=== PATIENT | female | born 1985 | race Caucasian/White ===

== ENCOUNTER 2017-02-16 12:09 | Emergency (ER) | payer OTHER ==
[~2017-02-16] VITALS: Ht 170.2 cm; Wt 98.0 kg
[~2017-02-16 12:09] MED LIST: ACET-704 PO; AMOX1TAB61 PO; METF500T4 PO; PRED50TA PO
[2017-02-16 13:20] VITALS: BP 168/81
[2017-02-16] MEDS ORDERED: PENICILLIN G BENZATHINE LA 1,200,000 UNIT/2 ML DISP.SYRIN. IM ONE (13:45)
--- NOTE | 2017-02-16 13:48 | PHYS DOC ---
Past Medical History Past Medical History: Gallstones, Other Additional Past Medical Histor: pre diabetes Past Surgical History: Additional Past Surgical Histo: x 2, endometriosis Alcohol Use: Occasionally Drug Use: None Adult General Chief Complaint Chief Complaint: SORE THROAT HPI HPI Patient is a 31 year old female who presents with sore throat that began yesterday and body aches that began a week ago. Patient's also complaining of subjective fevers. Review of Systems Review of Systems Constitutional: Subjective fevers and body aches Eyes: Denies change in visual acuity, redness, or eye pain [] HENT: sore throat [] Respiratory: Denies cough or shortness of breath [] Cardiovascular: No additional information not addressed in HPI [] GI: Denies abdominal pain, nausea, vomiting, bloody stools or diarrhea [] : Denies dysuria or hematuria [] Musculoskeletal: Denies back pain or joint pain [] Integument: Denies rash or skin lesions [] Neurologic: Denies headache, focal weakness or sensory changes [] Endocrine: Denies polyuria or polydipsia [] Current Medications Current Medications Current Medications Medications (Trade) Dose Ordered Sig/Essence Start Time Stop Time Status Last Admin Dose Admin Penicillin G Benzathine (Bicillin L-A) 1,200,000 unit 1X ONCE 02/16/17 13:45 02/16/17 13:46 DC Allergies Allergies Allergies Coded Allergies Type Severity Reaction Last Updated Verified No Known Drug Allergies 11/04/14 No Physical Exam Physical Exam Constitutional: Well developed, well nourished, no acute distress, non-toxic appearance. [] HENT: Normocephalic, atraumatic, bilateral external ears normal, oropharynx moist, no oral exudates, nose normal. [] +3 tonsils with mild erythema and bilateral exudate. Midline uvula + 2Anterior cervical adenopathy Eyes: PERRLA, EOMI, conjunctiva normal, no discharge. [] Neck: Normal range of motion, no tenderness, supple, no stridor. [] Cardiovascular:Heart rate regular rhythm, no murmur [] Lungs & Thorax: Bilateral breath sounds clear to auscultation [] Abdomen: Bowel sounds normal, soft, no tenderness, no masses, no pulsatile masses. [] Skin: Warm, dry, no erythema, no rash. [] Back: No tenderness, no CVA tenderness. [] Extremities: No tenderness, no cyanosis, no clubbing, ROM intact, no edema. [] Neurologic: Alert and oriented X 3, normal motor function, normal sensory function, no focal deficits noted. [] Psychologic: Affect normal, judgement normal, mood normal. [] Current Patient Data Vital Signs Vital Signs Date Time Temp Pulse Resp B/P Pulse Ox O2 Delivery O2 Flow Rate FiO2 02/16/17 13:20 98.2 82 16 96 Room Air 98.2 EKG EKG [] Radiology/Procedures Radiology/Procedures [] Course & Med Decision Making Course & Med Decision Making Pertinent Labs and Imaging studies reviewed. (See chart for details) Patient has tonsillitis. Given Bicillin shot in the ED. Saltwater gargles recommended. Tylenol/Motrin for pain or fever. Follow-up with PCP in one week. Dragon Disclaimer Dragon Disclaimer This electronic medical record was generated, in whole or in part, using a voice recognition dictation system. Departure Departure Impression: Primary Impression: Acute tonsillitis Disposition: HOME, SELF-CARE Condition: STABLE Referrals: NO PCP (PCP) Follow-up with your doctor in one week Patient Instructions: Tonsillitis, [id number] Additional Instructions: You were seen for tonsillitis and treated in the emergency room. Take Tylenol/ Motrin for pain or fever. Use saltwater gargles as directed. Come back to the ED if symptoms worsen. 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
== END 2017-02-16 14:23 | disposition home or self-care (01) ==
LOC: ER 12:09
DX: J03.90 Acute tonsillitis, unspecified (principal)
CPT/HCPCS: 96372; 99283; J0561

== ENCOUNTER 2017-04-02 14:33 | Emergency (ER) | payer OTHER ==
[~2017-04-02] VITALS: Ht 170.2 cm; Wt 99.8 kg
[2017-04-02] MEDS ORDERED: 0.9 % SODIUM CHLORIDE 10 ML DISP.SYRIN. IV PRN (15:15)
[2017-04-02] MEDS ORDERED: ONDANSETRON PF 4 MG/2 ML VIAL. IV ONE (15:15)
[2017-04-02] MEDS ORDERED: IV NORMAL SALINE 1000ML BAG 1,000 ML IV SCH (15:15)
[2017-04-02 15:37] LABS: BASO # 0.1 x10^3/uL (0.0-0.2); BASO % 1 % (0-3); EOS % 1 % (0-3); HEMATOCRIT 40.8 % (36.0-47.0); HEMOGLOBIN 13.7 g/dL (12.0-15.5); LYMPH # 3.1 x10^3/uL (1.0-4.8); LYMPH % 25 % (24-48); MEAN CORPUSCULAR HEMOGLOBIN 30 pg (25-35); MEAN CORPUSCULAR HGB CONC 34 g/dL (31-37); MEAN CORPUSCULAR VOLUME 88 fL (79-100); MONO % 7 % (0-9); NEUT % 66 % (31-73); PLATELET COUNT 320 x10^3/uL (140-400); RED BLOOD COUNT 4.64 x10^6/uL (3.50-5.40); RED CELL DISTRIBUTION WIDTH 14.2 % (11.5-14.5); WHITE BLOOD COUNT 12.5 x10^3/uL (4.0-11.0)
[2017-04-02] MEDS: MORPHINE SULFATE 4 MG/ML DISP.SYRIN. IV/SQ PRN ×2 (15:41→17:09)
--- NOTE | 2017-04-02 15:41 | PHYS DOC ---
Past Medical History Past Medical History: Gallstones, Other Additional Past Medical Histor: pre diabetes Past Surgical History: Additional Past Surgical Histo: x 2, endometriosis Alcohol Use: Occasionally Drug Use: None Adult General Chief Complaint Chief Complaint: ABDOMINAL PAIN HPI HPI Patient is a 31 year old female who presents with abdominal pain. She states yesterday morning she woke up with it she states she's having a right upper quadrant pain that's contraction-like discomfort and it radiates around to her back which is constant pain. She's also been complaining about some nausea and several episodes of loose stools. She denies any blood in her stools. She states nothing makes the pain better or worse. Is not associated with eating. She has GERD and has been taking her GERD medicine without any help. Review of Systems Review of Systems Constitutional: Denies fever or chills [] Eyes: Denies change in visual acuity, redness, or eye pain [] HENT: Denies nasal congestion or sore throat [] Respiratory: Denies cough or shortness of breath [] Cardiovascular: No additional information not addressed in HPI [] GI: Positive for abdominal pain, nausea, diarrhea , denies any vomiting, bloody stools : Denies dysuria or hematuria [] Musculoskeletal: Denies back pain or joint pain [] Integument: Denies rash or skin lesions [] Neurologic: Denies headache, focal weakness or sensory changes [] Endocrine: Denies polyuria or polydipsia [] Current Medications Current Medications Current Medications Medications (Trade) Dose Ordered Sig/Essence Start Time Stop Time Status Last Admin Dose Admin Info (Do NOT chart on this entry -- for MONITORING) 1 each PRN DAILY PRN 04/02/17 17:15 04/04/17 17:14 Iohexol (Omnipaque 300 Mg/ml) 75 ml 1X ONCE 04/02/17 17:15 04/02/17 17:16 DC 04/02/17 17:27 75 ML Morphine Sulfate 4 mg PRN Q15MIN PRN 04/02/17 15:15 04/03/17 15:14 04/02/17 17:09 4 MG Ondansetron HCl (Zofran) 4 mg 1X ONCE 04/02/17 15:15 04/02/17 15:17 DC 04/02/17 15:41 4 MG Sodium Chloride (Normal Saline Flush) 10 ml QSHIFT PRN 04/02/17 15:15 Allergies Allergies Allergies Coded Allergies Type Severity Reaction Last Updated Verified No Known Drug Allergies 11/04/14 No Physical Exam Physical Exam Constitutional: Well developed, well nourished, no acute distress, non-toxic appearance. [] HENT: Normocephalic, atraumatic, bilateral external ears normal, oropharynx moist, no oral exudates, nose normal. [] Eyes: PERRLA, EOMI, conjunctiva normal, no discharge. [] Neck: Normal range of motion, no tenderness, supple, no stridor. [] Cardiovascular:Heart rate regular rhythm, no murmur [] Lungs & Thorax: Bilateral breath sounds clear to auscultation [] Abdomen: Bowel sounds normal, soft, tender palpation in the right upper quadrant , no rebound or guarding, no masses, no pulsatile masses. [] Skin: Warm, dry, no erythema, no rash. [] Back: No tenderness, no CVA tenderness. [] Extremities: No tenderness, no cyanosis, no clubbing, ROM intact, no edema. [] Neurologic: Alert and oriented X 3, normal motor function, normal sensory function, no focal deficits noted. [] Psychologic: Affect normal, judgement normal, mood normal. [] Current Patient Data Vital Signs Vital Signs Date Time Temp Pulse Resp B/P (MAP) Pulse Ox O2 Delivery O2 Flow Rate FiO2 04/02/17 18:41 82 18 143/66 (91) 95 Room Air 04/02/17 15:05 98.6 98.6 Lab Values Laboratory Tests Test 04/02/17 15:10 04/02/17 15:20 Urine Collection Type Void Urine Color Yellow Urine Clarity Clear Urine pH 8.0 Urine Specific Bayard 1.020 Urine Protein Negative mg/dL (NEG-TRACE) Urine Glucose (UA) Negative mg/dL (NEG) Urine Ketones (Stick) Negative mg/dL (NEG) Urine Blood Negative (NEG) Urine Nitrite Negative (NEG) Urine Bilirubin Negative (NEG) Urine Urobilinogen Dipstick 0.2 mg/dL (0.2 mg/dL) Urine Leukocyte Esterase Negative (NEG) Urine RBC 0 /HPF (0-2) Urine WBC Rare /HPF (0-4) Urine Squamous Epithelial Cells Few /LPF Urine Amorphous Sediment Present /HPF Urine Bacteria Few /HPF (0-FEW) Urine Mucus Slight /LPF Urine Opiates Screen Neg (NEG) Urine Methadone Screen Neg (NEG) Urine Barbiturates Neg (NEG) Urine Phencyclidine Screen Neg (NEG) Urine Amphetamine/Methamphetamine Neg (NEG) Urine Benzodiazepines Screen Neg (NEG) Urine Cocaine Screen Neg (NEG) Urine Cannabinoids Screen Neg (NEG) Urine Ethyl Alcohol Neg (NEG) White Blood Count 12.5 x10^3/uL (4.0-11.0) H Red Blood Count 4.64 x10^6/uL (3.50-5.40) Hemoglobin 13.7 g/dL (12.0-15.5) Hematocrit 40.8 % (36.0-47.0) Mean Corpuscular Volume 88 fL (79-100) Mean Corpuscular Hemoglobin 30 pg (25-35) Mean Corpuscular Hemoglobin Concent 34 g/dL (31-37) Red Cell Distribution Width 14.2 % (11.5-14.5) Platelet Count 320 x10^3/uL (140-400) Neutrophils (%) (Auto) 66 % (31-73) Lymphocytes (%) (Auto) 25 % (24-48) Monocytes (%) (Auto) 7 % (0-9) Eosinophils (%) (Auto) 1 % (0-3) Basophils (%) (Auto) 1 % (0-3) Neutrophils # (Auto) 8.3 x10^3uL (1.8-7.7) H Lymphocytes # (Auto) 3.1 x10^3/uL (1.0-4.8) Monocytes # (Auto) 0.9 x10^3/uL (0.0-1.1) Eosinophils # (Auto) 0.2 x10^3/uL (0.0-0.7) Basophils # (Auto) 0.1 x10^3/uL (0.0-0.2) Prothrombin Time 12.7 SEC (11.7-14.0) Prothrombin Time INR 1.0 (0.8-1.1) PTT 28 SEC (24-38) Sodium Level 140 mmol/L (136-145) Potassium Level 4.0 mmol/L (3.5-5.1) Chloride Level 103 mmol/L (98-107) Carbon Dioxide Level 28 mmol/L (21-32) Anion Gap 9 (6-14) Blood Urea Nitrogen 12 mg/dL (7-20) Creatinine 0.7 mg/dL (0.6-1.0) Estimated GFR (Cockcroft-Gault) 97.0 Glucose Level 101 mg/dL (70-99) H Calcium Level 9.0 mg/dL (8.5-10.1) Total Bilirubin 0.3 mg/dL (0.2-1.0) Direct Bilirubin 0.1 mg/dL (0.0-0.2) Aspartate Amino Transferase (AST) 25 U/L (15-37) Alanine Aminotransferase (ALT) 41 U/L (14-59) Alkaline Phosphatase 68 U/L (46-116) Creatine Kinase 67 U/L (26-192) Creatine Kinase MB (Mass) < 0.5 ng/mL (0.0-3.6) Creatine Kinase MB Relative Index % (0-4) Troponin I Quantitative < 0.017 ng/mL (0.000-0.055) Total Protein 7.8 g/dL (6.4-8.2) Albumin 3.7 g/dL (3.4-5.0) Lipase 150 U/L (73-393) Laboratory Tests 04/02/17 15:20 Laboratory Tests 04/02/17 15:20 EKG EKG [] Radiology/Procedures Radiology/Procedures [facility] [address] [place] [address] IMAGING REPORT Signed PATIENT: SALVADOR ZAMBRANO ACCOUNT: [id number] : 1985 LOCATION: ER AGE: 31 SEX: F EXAM STATUS: REG ER ORD. PHYSICIAN: RHIANNON HANEY MD REASON: abd pain PROCEDURE: ABDOMEN COMPLETE Ultrasound of the abdomen 04/02/2017 Clinical history: Right upper quadrant abdominal pain. Technique: A real-time ultrasound examination of the abdomen was performed. Multiple images were obtained. Findings: The gallbladder is well distended. Echogenic gallstones are seen within the dependent portion of the gallbladder. The patient is tender with palpation of the ultrasound transducer over the region of the gallbladder (positive sonographic Davalos's sign). The gallbladder wall thickness is within normal limits. No pericholecystic fluid is seen. The common bile duct is not well visualized due to overlying bowel gas. No definite intra or extrahepatic biliary ductal dilatation is seen. The liver is normal in size measuring 16.5 cm in length. Increased echogenicity of the liver parenchyma is seen consistent with mild fatty infiltration. The spleen, visualized portions of the pancreas and kidneys are within normal limits. The abdominal aorta and inferior vena cava are not well visualized due to the patient's body habitus and overlying bowel gas. No free fluid is seen. Impression: 1. Cholelithiasis. Positive sonographic Barre sign. 2. Mild fatty infiltration of the liver. DICTATED and SIGNED BY: CECELIA MENENDEZ MD DATE: 04/02/17 1631 CC: RHIANNON HANEY MD; UNKNOWN PCP NAME ~ [facility] [address] [place] [address] IMAGING REPORT Signed PATIENT: SALVADOR ZAMBRANO ACCOUNT: [id number] : 1985 LOCATION: ER AGE: 31 SEX: F EXAM STATUS: REG ER ORD. PHYSICIAN: RHIANNON HANEY MD REASON: abd pain PROCEDURE: CT ABD PELV W/ IV CONTRST ONLY EXAM: Abdomen and pelvis CT with intravenous contrast. HISTORY: Right upper quadrant pain. TECHNIQUE: Computed tomographic images of the abdomen and pelvis were obtained following the administration of 75 cc Omnipaque 300 intravenous contrast. Multiplanar reformatting was performed. *One or more of the following individualized dose reduction techniques were utilized for this examination: 1. Automated exposure control. 2. Adjustment of the mA and/or kV according to patient size. 3. Use of iterative reconstruction technique. COMPARISON: None. FINDINGS: Evaluation of the lower thorax demonstrates posterior dependent atelectasis. There is suspected air trapping within the posterior medial lower lobes. There is mild hepatomegaly and hepatic steatosis. No suspicious hepatic lesion is seen. There is cholelithiasis. The pancreas, spleen, adrenal glands and kidneys are unremarkable. There is no appendicitis. There is no bowel obstruction. The uterus is unremarkable. There is a 4.0 cm left ovarian cyst. No pathologically enlarged lymph node is seen. There is no suspicious osseous lesion. IMPRESSION: 1. Mild hepatomegaly and hepatic steatosis. 2. Cholelithiasis. 3. 4.0 cm left ovarian cyst. 4. Suspected mild air trapping within the bilateral lower lungs. Electronically signed by: Elise Chauhan MD (04/02/2017 5:45 PM) DICTATED and SIGNED BY: ELISE CHAUHAN MD DATE: 04/02/17 174 CC: RHIANNON HANEY MD; UNKNOWN PCP NAME ~ Impressions: Abdominal pain Course & Med Decision Making Course & Med Decision Making Pertinent Labs and Imaging studies reviewed. (See chart for details) His have cholelithiasis based on ultrasound and CT scan. No acute abnormalities. No gall bladder wall thickening. I offered admission for pain control and surgery consultation she states she rather be discharged home. Her friend was in the room and witnessed this conversation. We'll discharge with Zofran and have her follow-up with on-call surgery. Return precautions given she is agreeable to the plan and being discharged in stable condition. Dragon Disclaimer Dragon Disclaimer This electronic medical record was generated, in whole or in part, using a voice recognition dictation system. Departure Departure Impression: Primary Impression: Abdominal pain Disposition: 01 HOME, SELF-CARE Condition: STABLE Referrals: UNKNOWN PCP NAME (PCP) ROSA SEPULVEDA MD Patient Instructions: Abdominal Pain Additional Instructions: The CAT scan and ultrasound shows you have cholelithiasis which was you have gallbladder sludge or some stones in your gallbladder. At this time the images doesn't show that you have an inflammation of your gallbladder. You were offered admission to the hospital and have surgery take a look at she to see if he needs her gallbladder removed. He stated rather go home and follow-up with him as an outpatient. If your pain gets worse, you have other concerns please return back to emergency department. He takes Zofran which is for nausea. Scripts Ondansetron (ZOFRAN ODT) 4 Mg Tab.rapdis 1 TAB SL Q8HRS Y for NAUSEA, #10 TAB Prov: RHIANNON HANEY MD 04/02/17 RHIANNON HANEY MD Apr 02, 2017 15:41
[2017-04-02 15:42] LABS: BILIRUBIN,URINE NEGATIVE (NEG); GLUCOSE,URINE NEGATIVE (NEG); NITRITE,URINE NEGATIVE (NEG); PROTEIN,URINE NEGATIVE (NEG-TRACE); UROBILINOGEN,URINE 0.2 mg/dL (0.2 mg/dL)
[2017-04-02 15:46] LABS: BARBITURATES NEG (NEG); BENZODIAZEPINES NEG (NEG); CANNABINOIDS NEG (NEG); COCAINE NEG (NEG); METHADONE NEG (NEG); OPIATES NEG (NEG); PHENCYCLIDINE NEG (NEG)
[2017-04-02 15:52] LABS: CREATININE 0.7 mg/dL (0.6-1.0)
[2017-04-02 15:58] LABS: PROTHROMBIN TIME PATIENT 12.7 SEC (11.7-14.0)
[2017-04-02 16:00] LABS: ALBUMIN 3.7 g/dL (3.4-5.0); DIRECT BILIRUBIN 0.1 mg/dL (0.0-0.2); TOTAL BILIRUBIN 0.3 mg/dL (0.2-1.0); TOTAL PROTEIN 7.8 g/dL (6.4-8.2)
[2017-04-02 16:03] LABS: CREATINE KINASE 67 U/L (26-192)
[2017-04-02 16:04] LABS: CKMB MASS < 0.5 ng/mL (0.0-3.6)
[2017-04-02 16:18] LABS: BACTERIA,URINE FEW /HPF (0-FEW); RBC,URINE 0 /HPF (0-2); SQUAMOUS EPITHELIAL CELL,UR FEW /LPF; WBC,URINE RARE /HPF (0-4)
--- NOTE | 2017-04-02 16:46 | RAD ---
Ultrasound of the abdomen 04/02/2017 Clinical history: Right upper quadrant abdominal pain. Technique: A real-time ultrasound examination of the abdomen was performed. Multiple images were obtained. Findings: The gallbladder is well distended. Echogenic gallstones are seen within the dependent portion of the gallbladder. The patient is tender with palpation of the ultrasound transducer over the region of the gallbladder (positive sonographic Davalos's sign). The gallbladder wall thickness is within normal limits. No pericholecystic fluid is seen. The common bile duct is not well visualized due to overlying bowel gas. No definite intra or extrahepatic biliary ductal dilatation is seen. The liver is normal in size measuring 16.5 cm in length. Increased echogenicity of the liver parenchyma is seen consistent with mild fatty infiltration. The spleen, visualized portions of the pancreas and kidneys are within normal limits. The abdominal aorta and inferior vena cava are not well visualized due to the patient's body habitus and overlying bowel gas. No free fluid is seen. Impression: 1. Cholelithiasis. Positive sonographic Nogal sign. 2. Mild fatty infiltration of the liver.
[2017-04-02] MEDS ORDERED: CONTRAST GIVEN MC PRN (17:15)
[2017-04-02] MEDS ORDERED: IOHEXOL 300 MG/ML 75 ML VIAL IV ONE (17:15)
--- NOTE | 2017-04-02 17:48 | RAD ---
EXAM: Abdomen and pelvis CT with intravenous contrast. HISTORY: Right upper quadrant pain. TECHNIQUE: Computed tomographic images of the abdomen and pelvis were obtained following the administration of 75 cc Omnipaque 300 intravenous contrast. Multiplanar reformatting was performed. *One or more of the following individualized dose reduction techniques were utilized for this examination: 1. Automated exposure control. 2. Adjustment of the mA and/or kV according to patient size. 3. Use of iterative reconstruction technique. COMPARISON: None. FINDINGS: Evaluation of the lower thorax demonstrates posterior dependent atelectasis. There is suspected air trapping within the posterior medial lower lobes. There is mild hepatomegaly and hepatic steatosis. No suspicious hepatic lesion is seen. There is cholelithiasis. The pancreas, spleen, adrenal glands and kidneys are unremarkable. There is no appendicitis. There is no bowel obstruction. The uterus is unremarkable. There is a 4.0 cm left ovarian cyst. No pathologically enlarged lymph node is seen. There is no suspicious osseous lesion. IMPRESSION: 1. Mild hepatomegaly and hepatic steatosis. 2. Cholelithiasis. 3. 4.0 cm left ovarian cyst. 4. Suspected mild air trapping within the bilateral lower lungs. Electronically signed by: Elise Andrews MD (04/02/2017 5:45 PM)
[2017-04-02] MEDS ORDERED: ONDA4TAB10 SL (19:40)
[2017-04-02 19:45] VITALS: BP 143/58
--- NOTE | 2017-04-03 06:11 | EKG ---
[facility] [address] [place] [address] Test Date: 2017-04-02 Test Time: 15:39:25 Pat Name: SALVADOR ZAMBRANO Department: Room: Gender: F Customer Complaint Service Supervisor: : 1985 Requested By: RHIANNON HANEY Order Number: [id number] Reading MD: Kalia Giang Measurements Intervals [place] Rate: 92 P: 26 WI: 168 QRS: 45 QRSD: 86 T: 18 QT: 332 QTc: 415 Interpretive Statements SINUS RHYTHM Electronically Signed On 04-03-2017 9:42:02 CDT by Kalia Giang
== END 2017-04-02 19:53 | disposition home or self-care (01) ==
LOC: ER 14:33
DX: R10.11 Right upper quadrant pain (principal); K80.20 Calculus of gallbladder without cholecystitis without obstruction
CPT/HCPCS: 36415; 74177; 76700; 80048; 80076; 80305; 80320; 81001; 81025; 82553; 83690; 84484; 85027; 85610; 85730; 93005; 96361; 96374; 96375; 96376; 99285; J2270; J2405; J7030; Q9967; G0480; G0481

== ENCOUNTER 2017-04-16 06:10 | Day surgery (SDC) | payer OTHER ==
[~2017-04-16 06:10] MED LIST changes: +ONDA4TAB10 SL
[2017-04-16] MEDS ORDERED: RANI150C PO (06:28)
--- NOTE | 2017-04-16 06:33 | ACF ---
Admission Forms Criteria PAIN MANAGEMENT GR Clinical Indications for Admission to Inpatient Care (Place 'X' for any and all applicable criteria): Hospital admission is needed for appropriate care of the patient because of 1 or more of the following are present (1)(2)(3)(4)(5): [X]I. Severe pain requiring acute inpatient management as indicated by 1 or more of the following (2)(5)(10): [X]a) Continuous or frequent (eg, every 2 to 4 hours) parenteral analgesics required [A] [ ]b) Necessity (ie, alternative approaches not effective) for analgesic regimen that can only be performed or initiated in inpatient setting [ ]II. Pain causing debilitation to the point of inability to function or be supported at any other level of care [ ]III. Severe side effects from pain medications as indicated by ANY ONE of the following (12)(13)(14)(15): [ ]a) Uncontrollable seizures [ ]b) Cardiac arrhythmias of immediate concern [ ]c) Dehydration that is severe or persistent [ ]d) Vomiting that is severe or persistent [ ]e) Altered mental status that is severe or persistent [ ]f) Obstipation with inadequate GI function to maintain nutrition The original [employer] content created by [employer] has been revised. The portions of the content which have been revised are identified through the use of italic text or in bold, and [employer] has neither reviewed nor approved the modified material. All other unmodified content is copyright [employer]. Please see references footnoted in the original [employer] edition 2016 Admission Criteria Met?: Yes SIMONE LOJA Apr 16, 2017 06:33
[2017-04-16 06:56] LABS: NEG OBC UR NEG; POS OBC UR POS
[2017-04-16] MEDS ORDERED: fentaNYL PF VIAL 100 MCG/2 ML VIAL IV PRN (07:00)
[2017-04-16] MEDS ORDERED: MORPHINE SULFATE 2 MG/ML DISP.SYRIN. IV PRN (07:00)
[2017-04-16] MEDS ORDERED: HYDROmorphone 2 MG/ML VIAL IV PRN (07:00)
[2017-04-16] MEDS ORDERED: ONDANSETRON PF 4 MG/2 ML VIAL. IV PRN (07:00)
[2017-04-16] MEDS ORDERED: IV RINGERS,LACTATED 1000ML 1,000 ML IV SCH (07:00)
[2017-04-16] MEDS ORDERED: PROCHLORPERAZINE 10 MG/2 ML VIAL. IV PRN (07:00)
[2017-04-16] MEDS ORDERED: LIDOCAINE 1% 1 ML SYRINGE. ID PRN (07:00)
[2017-04-16] MEDS ORDERED: DEXAMETHASONE SOD PHOS 20 MG/5 ML VIAL. ONE (07:01)
[2017-04-16] MEDS ORDERED: PROPOFOL 20 ML IV ONE (07:01)
[2017-04-16] MEDS ORDERED: MIDAZOLAM HCL/PF 2 MG/2 ML VIAL. ONE (07:01)
[2017-04-16] MEDS ORDERED: ONDANSETRON PF 4 MG/2 ML VIAL. ONE (07:01)
[2017-04-16] MEDS ORDERED: fentaNYL PF VIAL 100 MCG/2 ML VIAL ONE (07:01)
[2017-04-16] MEDS ORDERED: ROCURONIUM 50 MG/5 ML VIAL. ONE (07:02)
[2017-04-16] MEDS ORDERED: IOHEXOL 300 MG/ML 50 ML VIAL. ONE (07:09)
[2017-04-16] MEDS ORDERED: SURGICEL HEMOSTAT 4X8 EACH. ONE (07:09)
[2017-04-16] MEDS ORDERED: BUPIVACAINE-EPI 0.5%-1:200000 50 ML VIAL. ONE (07:09)
[2017-04-16] MEDS ORDERED: MORPHINE SULFATE 10 MG/ML VIAL. ONE (08:05)
[2017-04-16] MEDS ORDERED: NEOSTIGMINE METHYLSULFATE 5 MG/5 ML SYRINGE. ONE (08:26)
[2017-04-16] MEDS ORDERED: GLYCOPYRROLATE 1 MG/5 ML VIAL. ONE ×2 (08:26→08:27)
[2017-04-16] MEDS ORDERED: KETOROLAC 30 MG/ML INJ FOR OR. INJ ONE (08:30)
--- NOTE | 2017-04-16 08:31 | RAD ---
Indication: Intraoperative cholangiogram. Fluoroscopy was provided during the performance of an intraoperative cholangiogram. 31 seconds of fluoroscopy time was utilized. 3 images were obtained. Images demonstrate contrast being injected via the cystic duct remnant. There is contrast within the extra hepatic bile duct. No filling defect is seen to suggest a retained stone. Contrast does flow into the duodenum. Impression: No evidence of retained common duct stone.
--- NOTE | 2017-04-16 08:48 | PDOC4 ---
Operative Note Operative Note Operative Note: Preoperative Diagnosis: Symptomatic cholelithiasis Postoperative Diagnosis: Same Procedure: Laparoscopic cholecystectomy with intraoperative cholangiogram Surgeons: Tristen Anesthesia: GenNuno Estimated Blood Loss: 10 mL Specimen: Gallbladder to pathology Drains: None Complications: None Indications: The patient is a 31-year-old female who is been experiencing recurrent upper abdominal pain consistent with biliary colic. Her evaluation included a sonogram which showed gallstones. Surgical treatment was offered by means of a laparoscopic cholecystectomy. The risks of surgery were discussed which include bleeding, infection, bile duct injury, bile leak, pain, the potential for additional surgeries or procedures. The patient understands and would like to proceed. Description: The patient was taken to the operating room and laid supine on the operating table. General anesthesia was performed. The abdomen was prepped with ChloraPrep and draped in a standard surgical fashion. A small infraumbilical incision was made with a scalpel. The Veress needle was then inserted and a pneumoperitoneum was then created. A 5 mm trocar was then inserted and the laparoscope was introduced. In the upper midabdomen a 5 mm trocar was inserted and in the right upper quadrant two 2.3 mm mini lap graspers were inserted. The gallbladder was retracted cephalad. The cystic duct was dissected free from surrounding tissues. One clip was placed on the duct near the gallbladder junction. An opening was made in the duct and a cholangiocatheter placed within and secured with a clip. Using contrast dye and fluoroscopy an intraoperative cholangiogram was performed that appeared unremarkable. The clip and catheter were then withdrawn. Three clips were placed on the cystic duct and it was divided. The cystic artery was then identified, dissected free, doubly clipped and divided as well. The gallbladder was then mobilized away from the liver with cautery. The umbilical 5 millimeter trocar was exchanged for an 11 millimeter trocar. The gallbladder was then placed in an endoscopic bag and extracted at the umbilical trocar site. The fascia there was closed with an 0 Vicryl suture. All blood and irrigation fluid was suctioned and hemostasis was good. The remaining ports were removed and the pneumoperitoneum was relieved. The skin incisions were injected with half percent Marcaine with epinephrine, and all were closed using 4-0 Monocryl suture. Steri-Strips and dressings were then applied. The patient tolerated the procedure well and was sent to the recovery room in stable condition. At the end of the case all counts were correct. ROSA SEPULVEDA MD Apr 16, 2017 08:48
--- NOTE | 2017-04-16 08:50 | DISCH ---
DISCHARGE INSTRUCTIONS Condition on Discharge Condition on Discharge: Stable Activity After Discharge Activity Instructions for Disc: Other, see below (no lifting over 20 lbs X 2 weeks) Driving Instructions after Dis: Other, see below (no driving while taking pain meds) Diet after Discharge Diet after Discharge: Regular Wound Incision Care Wound/Incision Care: Other, see below (may remove bandaids and shower tomorrow) Follow-Up Follow up with: Dr Sepulveda in 2 weeks, call for appt [phone] ROSA SEPULVEDA MD Apr 16, 2017 08:50
[2017-04-16] MEDS: fentaNYL PF VIAL 100 MCG/2 ML VIAL IV PRN ×4 (09:02→09:40)
[2017-04-16] MEDS ORDERED: oxyCODONE/APAP 5/325 1 TAB TABLET PO ONE (09:45)
[2017-04-16] MEDS ORDERED: OXYC-323 PO (09:59)
[2017-04-16 11:05] VITALS: BP 127/77
--- NOTE | 2017-04-17 15:03 | PATHOLOGY ---
PATHOLOGY REPORT * * * * * * * * FINAL DIAGNOSIS: Gallbladder, laparoscopic cholecystectomy: - Cholelithiasis. - Chronic cholecystitis. COMMENT: There is no evidence of malignancy. (JPM:pit; d/t: 04/17/2017) REPORT ELECTRONICALLY SIGNED BY: Oren Manley M.D. DATE/TIME: 04/17/2017 15:02 * * * * * * * * GROSS PATHOLOGY: Received in formalin labeled "Salvador Zambrano, gallbladder," is a 6.3 x 2.8 x 1.3 cm, partially opened gallbladder with yellow manzo, fatty appearing serosal surfaces. Opening the gallbladder reveals yellow red, velvety mucosa and an average wall thickness of 0.3 cm. Calculi are present and no masses are noted grossly. A And P Mechanic sections from the body and fundus are submitted along with the proximal margin in cassette A1. (JPM; 04/16/17) INITIAL CPT CODE(S): A; 82025 Professional services performed [place] [facility] [place] [address] Technical services performed by [facility] at [address] [place] [address]. SPECIMEN(S) RECEIVED: A.Gallbladder and contents CLINICAL HISTORY: Symptomatic cholelithiasis PATIENT: SALVADOR ZAMBRANO /AGE: 2 1985 (Age: 31) PATIENT #: [id number] ALT CASE #: SPECIMEN COLLECTION DATE: 04/16/2017 SPECIMEN RECEIVED DATE: 04/16/2017 [facility] - [address] [place] [address] - PHONE: [phone] * * * END OF REPORT * * *
== END 2017-04-16 12:02 | disposition home or self-care (01) ==
LOC: SURG 06:10
PROVIDERS: ATTEND Surgery
DX: K80.10 Calculus of gallbladder with chronic cholecystitis without obstruction (principal); E78.00 Pure hypercholesterolemia, unspecified; I10 Essential (primary) hypertension; K21.9 Gastro-esophageal reflux disease without esophagitis; E11.9 Type 2 diabetes mellitus without complications; Z72.0 Tobacco use; F17.200 Nicotine dependence, unspecified, uncomplicated; N80.9 Endometriosis, unspecified; Z86.39 Personal history of other endocrine, nutritional and metabolic disease
CPT/HCPCS: 47563; 74300; 81025; 82962; C1769; J0690; J0780; J1100; J1885; J2250; J2270; J2405; J2704; J2710; J3010; J3490; J7030; J7120; Q9967; 88304

== ENCOUNTER 2020-03-21 20:05 | Emergency (ER) | payer MEDICAID, OTHER ==
[~2020-03-21] VITALS: Ht 170.2 cm; Wt 93.9 kg
[~2020-03-21 20:05] MED LIST changes: +METF500T16 PO; -METF500T4 PO; +OXYC1TAB15 PO; +RANI150C PO
[2020-03-21] MEDS ORDERED: IV NORMAL SALINE 1000ML BAG 1,000 ML IV SCH (20:23)
[2020-03-21 20:33] LABS: BILIRUBIN,URINE NEGATIVE (NEG); CLARITY,URINE CLEAR; COLOR,URINE YELLOW; NITRITE,URINE NEGATIVE (NEG); PH,URINE 6.5 (<5.0-8.0); PROTEIN,URINE NEGATIVE (NEG-TRACE); UROBILINOGEN,URINE 0.2 mg/dL (0.2 mg/dL)
[2020-03-21 20:38] LABS: BACTERIA,URINE MODERATE /HPF (0-FEW); RBC,URINE 0 /HPF (0-2); SQUAMOUS EPITHELIAL CELL,UR MOD /LPF
[2020-03-21 20:45] LABS: BASO # 0.1 x10^3/uL (0.0-0.2); BASO % 1 % (0-3); EOS # 0.1 x10^3/uL (0.0-0.7); EOS % 1 % (0-3); HEMATOCRIT 36.4 % (36.0-47.0); HEMOGLOBIN 12.7 g/dL (12.0-15.5); LYMPH # 2.9 x10^3/uL (1.0-4.8); LYMPH % 24 % (24-48); MEAN CORPUSCULAR HEMOGLOBIN 31 pg (25-35); MEAN CORPUSCULAR HGB CONC 35 g/dL (31-37); MEAN CORPUSCULAR VOLUME 88 fL (79-100); MONO # 0.9 x10^3/uL (0.0-1.1); MONO % 7 % (0-9); NEUT % 67 % (31-73); PLATELET COUNT 340 x10^3/uL (140-400); RED BLOOD COUNT 4.15 x10^6/uL (3.50-5.40); RED CELL DISTRIBUTION WIDTH 13.7 % (11.5-14.5)
[2020-03-21 20:52] LABS: CALCIUM 8.3 mg/dL (8.5-10.1); CREATININE 0.8 mg/dL (0.6-1.0); GFR 81.6; POTASSIUM 3.6 mmol/L (3.5-5.1)
[2020-03-21 20:58] LABS: ALBUMIN 3.4 g/dL (3.4-5.0); ALBUMIN/GLOBULIN RATIO 0.9 (1.0-1.7); MAGNESIUM 1.7 mg/dL (1.8-2.4); TOTAL BILIRUBIN 0.2 mg/dL (0.2-1.0); TOTAL PROTEIN 7.2 g/dL (6.4-8.2)
--- NOTE | 2020-03-21 23:32 | RAD ---
CLINICAL HISTORY: Reason: pelvic pain; , intermittent bleeding for one month COMPARISON: None available. TECHNIQUE: transabdominal and endovaginal sonography was performed FINDINGS: An intrauterine gestational sac is present. An embryo is identified .Cardiac activity is visualized and documented at a rate of 182 beats per minute. There is no subchorionic fluid collection. Based on a crown rump length averaging 3.13 cm, the estimated gestational age is 10 weeks, 0 days. Estimated date of delivery is 10/17/2020. The right ovary measures 4.9 x 5.1 x 4.6 centimeters. A right ovarian cyst measures 3.9 x 4.5 x 4.1 cm. The left ovary was not seen There is no pelvic free fluid. IMPRESSION: 1. Single live intrauterine gestation with mean sonographic age of 10 weeks,0 days. The estimated date of delivery is 10/17/2020. 2. Right ovarian cyst measures up to 4.5 cm, greater than expected for corpus luteum cyst. Recommend close interval follow-up with ultrasound. Electronically signed by: Ad Alfred MD (03/21/2020 11:29 PM) JUAN
[2020-03-22] MEDS ORDERED: ACET-704 PO (00:25)
[2020-03-22] MEDS ORDERED: ONDA4TAB12 PO (00:25)
--- NOTE | 2020-03-22 00:26 | PHYS DOC ---
Past Medical History Past Medical History: Endometriosis, Gallstones, Other Additional Past Medical Histor: pre diabetes Past Surgical History: Additional Past Surgical Histo: [id number] Smoking Status: Current Every Day Smoker Alcohol Use: None Drug Use: None General Adult EDM: Chief Complaint: ABDOMINAL PAIN HPI: HPI: Patient is a 34 year old female who presents with complaint of lower abdominal pain and positive home . Patient is a G4, who presents stating that about a month ago she was having some vaginal bleeding and passing some clots. She states that she had previously tested positive for and thought she was just having a miscarriage due to the bleeding and the clots. Patient did not follow-up at that time, thinking that she had a completed miscarriage. She states that earlier today she started having pain in her lower abdomen on both sides that she describes as sharp and stabbing. She rates that pain at a 7 out of 10. She denies any nausea or vomiting. She also denies any vaginal bleeding or discharge. [] Review of Systems: Review of Systems: Constitutional: Denies fever or chills. [] Respiratory: Denies cough or shortness of breath. [] Cardiovascular: Denies chest pain or edema. [] GI: Complains of lower abdominal pain without vomiting or diarrhea. [] : Denies dysuria. [] Neurologic: Denies headache, focal weakness or sensory changes. [] A full 10 point review of systems has been reviewed and is otherwise negative. Heart Score: Risk Factors: Risk Factors: DM, Current or recent (<one month) smoker, HTN, HLP, family history of CAD, obesity. Risk Scores: Score 0 - 3: 2.5% MACE over next 6 weeks - Discharge Home Score 4 - 6: 20.3% MACE over next 6 weeks - Admit for Clinical Observation Score 7 - 10: 72.7% MACE over next 6 weeks - Early Invasive Strategies Current Medications: Current Medications Medications (Trade) Dose Ordered Sig/Essence Start Time Stop Time Status Last Admin Dose Admin Sodium Chloride 1,000 ml @ 1,000 mls/hr Q1H 03/21/20 20:23 03/21/20 21:22 DC 03/21/20 20:37 1,000 MLS/HR Allergies: Allergies: Allergies Coded Allergies Type Severity Reaction Last Updated Verified No Known Drug Allergies 04/16/17 No Physical Exam: PE: Constitutional: Well developed, well nourished, no acute distress, non-toxic appearance. [] HENT: Normocephalic, atraumatic, bilateral external ears normal, oropharynx moist, no oral exudates, nose normal. [] Eyes: PERRLA, EOMI, conjunctiva normal, no discharge. [] Neck: Normal range of motion, no tenderness, supple, no stridor. [] Cardiovascular: Regular rate and rhythm [] Lungs & Thorax: Bilateral breath sounds clear to auscultation [] Abdomen: Bowel sounds normal, soft, with mild bilateral adnexal tenderness. [] Skin: Warm, dry, no erythema, no rash. [] Extremities: No tenderness, no cyanosis, no clubbing, ROM intact. [] Neurologic: Alert and oriented X 3, no focal deficits noted. [] Current Patient Data: Labs: Laboratory Tests Test 03/21/20 20:20 03/21/20 20:28 03/21/20 20:30 Urine Collection Type Unknown Urine Color Yellow Urine Clarity Clear Urine pH 6.5 (<5.0-8.0) Urine Specific [place] 1.020 (1.000-1.030) Urine Protein Negative mg/dL (NEG-TRACE) Urine Glucose (UA) Negative mg/dL (NEG) Urine Ketones (Stick) Negative mg/dL (NEG) Urine Blood Negative (NEG) Urine Nitrite Negative (NEG) Urine Bilirubin Negative (NEG) Urine Urobilinogen Dipstick 0.2 mg/dL (0.2 mg/dL) Urine Leukocyte Esterase Small (NEG) Urine RBC 0 /HPF (0-2) Urine WBC 1-4 /HPF (0-4) Urine Squamous Epithelial Cells Mod /LPF Urine Bacteria Moderate /HPF (0-FEW) Urine Mucus Marked /LPF POC Urine HCG, Qualitative Hcg positive (Negative) White Blood Count 12.0 x10^3/uL (4.0-11.0) H Red Blood Count 4.15 x10^6/uL (3.50-5.40) Hemoglobin 12.7 g/dL (12.0-15.5) Hematocrit 36.4 % (36.0-47.0) Mean Corpuscular Volume 88 fL (79-100) Mean Corpuscular Hemoglobin 31 pg (25-35) Mean Corpuscular Hemoglobin Concent 35 g/dL (31-37) Red Cell Distribution Width 13.7 % (11.5-14.5) Platelet Count 340 x10^3/uL (140-400) Neutrophils (%) (Auto) 67 % (31-73) Lymphocytes (%) (Auto) 24 % (24-48) Monocytes (%) (Auto) 7 % (0-9) Eosinophils (%) (Auto) 1 % (0-3) Basophils (%) (Auto) 1 % (0-3) Neutrophils # (Auto) 8.0 x10^3/uL (1.8-7.7) H Lymphocytes # (Auto) 2.9 x10^3/uL (1.0-4.8) Monocytes # (Auto) 0.9 x10^3/uL (0.0-1.1) Eosinophils # (Auto) 0.1 x10^3/uL (0.0-0.7) Basophils # (Auto) 0.1 x10^3/uL (0.0-0.2) Maternal Serum HCG Beta Subunit 67986 mIU/mL (0-5) H Sodium Level 136 mmol/L (136-145) Potassium Level 3.6 mmol/L (3.5-5.1) Chloride Level 102 mmol/L (98-107) Carbon Dioxide Level 24 mmol/L (21-32) Anion Gap 10 (6-14) Blood Urea Nitrogen 8 mg/dL (7-20) Creatinine 0.8 mg/dL (0.6-1.0) Estimated GFR (Cockcroft-Gault) 81.6 BUN/Creatinine Ratio 10 (6-20) Glucose Level 94 mg/dL (70-99) Calcium Level 8.3 mg/dL (8.5-10.1) L Magnesium Level 1.7 mg/dL (1.8-2.4) L Total Bilirubin 0.2 mg/dL (0.2-1.0) Aspartate Amino Transferase (AST) 12 U/L (15-37) L Alanine Aminotransferase (ALT) 19 U/L (14-59) Alkaline Phosphatase 54 U/L (46-116) Total Protein 7.2 g/dL (6.4-8.2) Albumin 3.4 g/dL (3.4-5.0) Albumin/Globulin Ratio 0.9 (1.0-1.7) L Laboratory Tests 03/21/20 20:30 Laboratory Tests 03/21/20 20:30 Vital Signs: Vital Signs Date Time Temp Pulse Resp B/P (MAP) Pulse Ox O2 Delivery O2 Flow Rate FiO2 03/21/20 20:45 98.4 103 14 162/79 (106) 97 Room Air 98.4 EKG: EKG: [] Radiology/Procedures: Radiology/Procedures: [] Impression: PROCEDURE: OB <14 WKS W/TV CLINICAL HISTORY: Reason: pelvic pain; , intermittent bleeding for one month COMPARISON: None available. TECHNIQUE: transabdominal and endovaginal sonography was performed FINDINGS: An intrauterine gestational sac is present. An embryo is identified .Cardiac activity is visualized and documented at a rate of 182 beats per minute. There is no subchorionic fluid collection. Based on a crown rump length averaging 3.13 cm, the estimated gestational age is 10 weeks, 0 days. Estimated date of delivery is 10/17/2020. The right ovary measures 4.9 x 5.1 x 4.6 centimeters. A right ovarian cyst measures 3.9 x 4.5 x 4.1 cm. The left ovary was not seen There is no pelvic free fluid. IMPRESSION: 1. Single live intrauterine gestation with mean sonographic age of 10 weeks,0 days. The estimated date of delivery is 10/17/2020. 2. Right ovarian cyst measures up to 4.5 cm, greater than expected for corpus luteum cyst. Recommend close interval follow-up with ultrasound. Electronically signed by: Ad Alfred MD (03/21/2020 11:29 PM) [facility] Course & Med Decision Making: Course & Med Decision Making Pertinent Labs and Imaging studies reviewed. (See chart for details) [] Dragon Disclaimer: Dragon Disclaimer: This electronic medical record was generated, in whole or in part, using a voice recognition dictation system. Departure Departure Impression: Primary Impression: Abdominal pain affecting Additional Impression: Right ovarian cyst Disposition: HOME, SELF-CARE Condition: STABLE Referrals: UNKNOWN PCP NAME (PCP) Patient Instructions: Abdominal Pain During , Ovarian Cyst Scripts Acetaminophen With Codeine (TYLENOL WITH CODEINE #3 TABLET) 1 Each Tablet 1 TAB PO PRN Q6HRS PRN for PAIN, #12 TAB Prov: JOYA DUARTE Jr. DO 03/22/20 Ondansetron (ONDANSETRON ODT) 4 Mg Tab.rapdis 1 TAB PO PRN Q6-8HRS PRN for NAUSEA, #15 TAB Prov: JOYA DUARTE Jr. DO 03/22/20 JOYA DUARTE Jr. DO Mar 22, 2020 00:26
[2020-03-22 00:30] VITALS: BP 151/84
== END 2020-03-22 00:40 | disposition home or self-care (01) ==
LOC: ER 20:05
DX: O34.81 Maternal care for other abnormalities of pelvic organs, first trimester (principal); N83.201 Unspecified ovarian cyst, right side; O99.331 Smoking (tobacco) complicating pregnancy, first trimester; Z3A.10 10 weeks gestation of pregnancy
CPT/HCPCS: 36415; 76801; 76817; 80053; 81001; 81025; 83735; 84702; 85025; 86900; 86901; 87086; 99284; J7030